=== PATIENT | female | born 1990 | race Caucasian/White ===

== ENCOUNTER 2018-06-12 22:03 | Emergency (ER) | payer SELFPAY ==
[2018-06-13] MEDS ORDERED: Cyclobenzaprine TAB* 10 MG PO ONE (01:46)
[2018-06-13] MEDS ORDERED: Ketorolac INJ* 60 MG/2 ML VIAL IM ONE (01:46)
[2018-06-13] MEDS ORDERED: oxyCODONE/Acetamin 5/325 MG* TAB PO ONE (01:46)
--- NOTE | 2018-06-13 02:08 | ED ---
Back Pain - HPI Summary HPI Summary: This patient is a 27 year old F presenting to [facility] c/o lower back pain that she describes as a spams. She states she was at work yesterday, bending over a counter, when her back began to spam. Since then she has been lying in bed taking alleve without relief. The patient rates the pain 8/10 in severity and states it radiates into her left groin and leg. Symptoms aggravated by movement. Patient denies urinary sx, trouble passing stool, fever, trauma, and decreased appetite. - History of Current Complaint Chief Complaint: EDBackInjuryPain Stated Complaint: BACK PAIN Time Seen by Provider: 06/13/18 01:40 Hx Obtained From: Patient Onset/Duration: Lasting Days, Still Present Onset/Duration: Still Present Timing: Constant Back Pain Location: Is Diffuse Severity Initially: Severe Severity Currently: Severe Pain Intensity: 10 Pain Scale Used: 0-10 Numeric Character: Spasmodic Aggravating Symptom(s): Movement Associated Signs And Symptoms: Negative: Fever, Bladder Incontinence, Bowel Incontinence - Allergies/Home Medications Allergies/Adverse Reactions: Allergies Allergy/AdvReac Type Severity Reaction Status Date / Time amoxicillin AdvReac Unknown Verified 06/12/18 22:07 Reaction Details Penicillins AdvReac Unknown Verified 06/12/18 22:07 Reaction Details PMH/Surg Hx/FS Hx/Imm Hx Endocrine/Hematology History: Denies: Hx Thyroid Disease, Hx Unexplained Bleeding Cardiovascular History: Denies: Hx Auto Implanted Cardiovert Defib, Hx Cardiomegaly Respiratory History: Denies: Hx Bronchopulmonary Dysplasia, Hx Cystic Fibrosis Musculoskeletal History: Denies: Hx Scoliosis Infectious Disease History: No Infectious Disease History: Denies: Traveled Outside the [place] in Last 30 Days - Family History Known Family History: Negative: Respiratory Disease, Seizure Disorder - Social History Occupation: Employed Full-time, Employed Part-time Lives: With Family Alcohol Use: None Hx Substance Use: No Substance Use Type: Reports: None Hx Tobacco Use: No Smoking Status (MU): Never Smoked Tobacco Review of Systems Constitutional: Negative - trauma, and decreased appetite. Negative: Fever Gastrointestinal: Negative - trouble passing stool Positive: no symptoms reported Positive: Other - back pain All Other Systems Reviewed And Are Negative: Yes Physical Exam - Summary Physical Exam Summary: VITAL SIGNS: Reviewed. GENERAL: Patient is a well-developed and nourished female who is lying comfortable in the stretcher. Patient is not in any acute respiratory distress. HEAD AND FACE: No signs of trauma. No ecchymosis, hematomas or skull depressions. No sinus tenderness. EYES: PERRLA, EOMI x 2, No injected conjunctiva, no nystagmus. EARS: Hearing grossly intact. Ear canals and tympanic membranes are within normal limits. MOUTH: Oropharynx within normal limits. NECK: Supple, trachea is midline, no adenopathy, no JVD, no carotid bruit, no c- spine tenderness, neck with full ROM. CHEST: Symmetric, no tenderness at palpation LUNGS: Clear to auscultation bilaterally. No wheezing or crackles. CVS: Regular rate and rhythm, S1 and S2 present, no murmurs or gallops appreciated. ABDOMEN: Soft, non-tender. No signs of distention. No rebound no guarding, and no masses palpated. Bowel sounds are normal. Back: TTP in the upper lumbar spine. Bilateral straight leg is positive. Right 30 degrees and 20 degrees on the left EXTREMITIES: FROM in all major joints, no edema, no cyanosis or clubbing. NEURO: Alert and oriented x 3. No acute neurological deficits. Speech is normal and follows commands. SKIN: Dry and warm Triage Information Reviewed: Yes Vital Signs On Initial Exam: Initial Vitals Temp Pulse Resp BP Pulse Ox 99.1 F 104 18 134/88 100 06/12/18 22:05 06/12/18 22:05 06/12/18 22:05 06/12/18 22:05 06/12/18 22:05 Vital Signs Reviewed: Yes Diagnostics - Vital Signs Vital Signs Temp Pulse Resp BP Pulse Ox 06/13/18 02:00 16 06/13/18 00:17 99.4 F 76 16 119/81 06/12/18 22:05 99.1 F 104 18 134/88 100 - Laboratory Lab Statement: Any lab studies that have been ordered have been reviewed, and results considered in the medical decision making process. Re-Evaluation - Re-Evaluation First Eval Re-Evaluation Time: 02:42 Change: Improved Comment: The patient is ambualting in the ED. Back Pain Course/Dx - Course Assessment/Plan: This patient is a 27 year old F presenting to [facility] c/o lower back pain that she describes as a spams. She states she was at work yesterday, bending over a counter, when her back began to spam. Since then she has been lying in bed taking alleve without relief. The patient rates the pain 8/10 in severity and states it radiates into her left groin and leg. Symptoms aggravated by movement. Patient denies urinary sx, trouble passing stool, fever , trauma, and decreased appetite. Dx back pain. In the ED course the patient was given flexeril, toradol, and percocet which alleviated sx. Patient will be discharged with prescription for flexeril and follow up from PCP. The patient is agreeable with this plan. - Diagnoses Provider Diagnoses: Lower back pain Discharge - Sign-Out/Discharge Documenting (check all that apply): Patient Departure - Discharge Plan Condition: Stable Disposition: HOME Patient Education Materials: Back Pain (ED) Referrals: [facility] [place] PHYSICIAN REFERRAL [Outside] Additional Instructions: RETURN TO THE EMERGENCY DEPARTMENT FOR CHANGING OR WORSENING SYMPTOMS. FOLLOW UP WITH PCP IN 1-2 DAYS. - Attestation Statements Document Initiated by Scribe: Yes Documenting Scribe: Jignesh Templeton Provider For Whom Taty is Documenting (Include Credential): Georgia Nagel MD Scribe Attestation: Jignesh Steiner, scribed for Georgia Nagel MD on 06/13/18 at 0241.
[2018-06-13 02:51] VITALS: BP 120/70
== END 2018-06-13 02:50 | disposition home or self-care (01) ==
LOC: ED 22:03
DX: M54.5 Low back pain (principal); Z88.0 Allergy status to penicillin
CPT/HCPCS: 96372; 99282; A9270-GY; J1885

== ENCOUNTER 2018-12-02 19:45 | Emergency (ER) | payer MEDICAID, OTHER ==
[2018-12-02 20:25] LABS: ABS Basophils 0.1 10^3/ul (0-0.2); ABS Eosinophils 0.2 10^3/ul (0-0.6); ABS Monocytes 0.6 10^3/ul (0-0.8); ABS Neutrophils 7.2 10^3/ul (1.5-7.7); ABS Nucleated RBC 0 10^3/ul; Eosinophil % 1.8 %; Hematocrit 41 % (33-41); Hemoglobin 13.9 g/dL (12.0-16.0); Lymphocyte % 27.5 %; Mean Corpuscular HGB Conc 34 g/dL (31-36); Mean Corpuscular Hemoglobin 30 pg (27-31); Mean Corpuscular Volume 87 fL (80-97); Mean Platelet Volume 7.6 fL (7.4-10.4); Nucleated Red Blood Cells % 0.1; Platelet Count 379 10^3/uL (150-450); Red Blood Count 4.69 10^6 /uL (3.70-4.87); Red Cell Distribution Width 12 % (10.5-15); White Blood Count 11.1 10^3/uL (3.5-10.8)
[2018-12-02 20:36] LABS: ALT 50 U/L (7-52); AST 25 U/L (13-39); Albumin/Globulin Ratio 1.8 (1-3); Alkaline Phosphatase 70 U/L (34-104); Anion Gap 6 mmol/L (2-11); BUN/Creatinine Ratio 15.8 (8-20); Blood Urea Nitrogen 12 mg/dL (6-24); CO2 Carbon Dioxide 28 mmol/L (22-32); Calcium 9.5 mg/dL (8.6-10.3); Chloride 104 mmol/L (101-111); EGFR African American 111.3 (>60); Globulin 2.8 g/dL (2-4); Glucose 108 mg/dL (70-100); Potassium 3.7 mmol/L (3.5-5.0); Sodium 138 mmol/L (135-145); Total Protein 7.8 g/dL (6.4-8.9)
[2018-12-02 20:43] LABS: HCG Pregnancy < 0.60 mIU/mL
--- NOTE | 2018-12-02 21:50 | ED ---
GI/ HPI - HPI Summary HPI Summary: Patient with history of pre-op transgender female, taking hormones for male going to female, complains of increasing closing of the urethral opening on the penis 2 weeks, and possible purulent discharge, and mild abdominal pain. Patient also states this morning she was unable to urinate and used a set of tweezers to open the urethra which resulted in urine flow and subsequent persistent bleeding. Patient states she inserted tweezers what appears to be about .75cm. Patient states no burning with urination, fever, testicular pain, cough, sore throat, CP, SOB, N/V/D, change in BM. Medical history is none. Abdominal surgical history is none. - History of Current Complaint Chief Complaint: EDUrogenitalProblems Time Seen by Provider: 12/02/18 21:05 Stated Complaint: BLEEDING FROM URINARY TRACT PER PT Hx Obtained From: Patient Onset/Duration: Started Hours Ago Timing: Constant Severity: Mild Current Severity: Mild Pain Intensity: 7 Additional Location for Females: Other Associated Signs and Symptoms: Positive: Discharge, Hematuria, Abdominal Pain Aggravating Factor(s): Urination - Allergy/Home Medications Allergies/Adverse Reactions: Allergies Allergy/AdvReac Type Severity Reaction Status Date / Time amoxicillin AdvReac Unknown Verified 12/02/18 19:55 Reaction Details Penicillins AdvReac Unknown Verified 12/02/18 19:55 Reaction Details Home Medications: Home Medications Estradiol 3 mg PO DAILY 12/02/18 [History Confirmed 12/02/18] Spironolactone 200 mg PO DAILY 12/02/18 [History Confirmed 12/02/18] PMH/Surg Hx/FS Hx/Imm Hx Endocrine/Hematology History: Denies: Hx Thyroid Disease, Hx Unexplained Bleeding Cardiovascular History: Denies: Hx Auto Implanted Cardiovert Defib, Hx Cardiomegaly Respiratory History: Denies: Hx Bronchopulmonary Dysplasia, Hx Cystic Fibrosis History: Denies: Hx Dialysis Musculoskeletal History: Denies: Hx Scoliosis Sensory History: Denies: Hx Eye Prosthesis Opthamlomology History: Denies: Hx Legally Blind EENT History: Denies: Hx Deafness Neurological History: Denies: Hx Dementia Psychiatric History: Denies: Hx Autism Infectious Disease History: Yes Infectious Disease History: Denies: Traveled Outside the [place] in Last 30 Days - Family History Known Family History: Negative: Respiratory Disease, Seizure Disorder - Social History Alcohol Use: Occasionally Hx Substance Use: No Substance Use Type: Reports: None Hx Tobacco Use: No Smoking Status (MU): Never Smoked Tobacco Review of Systems Constitutional: Negative Eyes: Negative ENT: Negative Cardiovascular: Negative Respiratory: Negative Positive: Abdominal Pain Positive: dysuria, discharge, hematuria Musculoskeletal: Other Skin: Negative Neurological: Negative Psychological: Normal All Other Systems Reviewed And Are Negative: Yes Physical Exam - Summary Physical Exam Summary: Foreskin retractable. No evidence of edema, trauma, erythema, ecchymosis noted to penis or testicles. No pain with palpation. Extremely small urethral opening. Abdomen soft nontender. No active bleeding. Triage Information Reviewed: Yes Vital Signs On Initial Exam: Initial Vitals Temp Pulse Resp BP Pulse Ox 96.5 F 96 16 127/90 100 12/02/18 19:52 12/02/18 19:52 12/02/18 19:52 12/02/18 19:52 12/02/18 19:52 Vital Signs Reviewed: Yes Appearance: Positive: Well-Appearing Skin: Positive: Warm Head/Face: Positive: Normal Head/Face Inspection Eyes: Positive: Normal Neck: Positive: Supple Respiratory/Lung Sounds: Positive: Clear to Auscultation Cardiovascular: Positive: Normal Abdomen Description: Positive: Nontender Neurological: Positive: Normal Psychiatric: Positive: Normal AVPU Assessment: Alert - [place] Coma Scale Best Eye Response: 4 - Spontaneous Best Motor Response: 6 - Obeys Commands Best Verbal Response: 5 - Oriented Coma Scale Total: 15 Diagnostics - Vital Signs Vital Signs Temp Pulse Resp BP Pulse Ox 12/02/18 19:52 96.5 F 96 16 127/90 100 - Laboratory Lab Results: Lab Results 12/02/18 12/02/18 Range/Units 20:12 20:12 WBC 11.1 H (3.5-10.8) 10^3/uL RBC 4.69 (3.70-4.87) 10^6 /uL Hgb 13.9 (12.0-16.0) g/dL Hct 41 (33-41) % MCV 87 (80-97) fL MCH 30 (27-31) pg MCHC 34 (31-36) g/dL RDW 12 (10.5-15) % Plt Count 379 (150-450) 10^3/uL MPV 7.6 (7.4-10.4) fL Neut % (Auto) 65.1 % Lymph % (Auto) 27.5 % [place] % (Auto) 5.1 % Eos % (Auto) 1.8 % Baso % (Auto) 0.5 % Absolute Neuts (auto) 7.2 (1.5-7.7) 10^3/ul Absolute Lymphs (auto) 3.0 (1.0-4.8) 10^3/ul Absolute Monos (auto) 0.6 (0-0.8) 10^3/ul Absolute Eos (auto) 0.2 (0-0.6) 10^3/ul Absolute Basos (auto) 0.1 (0-0.2) 10^3/ul Absolute Nucleated RBC 0 10^3/ul Nucleated RBC % 0.1 Sodium 138 (135-145) mmol/L Potassium 3.7 (3.5-5.0) mmol/L Chloride 104 (101-111) mmol/L Carbon Dioxide 28 (22-32) mmol/L Anion Gap 6 (2-11) mmol/L BUN 12 (6-24) mg/dL Creatinine 0.76 (0.51-0.95) mg/dL Est GFR ( Amer) 111.3 (>60) Est GFR (Non-Af Amer) 92.0 (>60) BUN/Creatinine Ratio 15.8 (8-20) Glucose 108 H (70-100) mg/dL Calcium 9.5 (8.6-10.3) mg/dL Total Bilirubin 0.50 (0.2-1.0) mg/dL AST 25 (13-39) U/L ALT 50 (7-52) U/L Alkaline Phosphatase 70 (34-104) U/L Total Protein 7.8 (6.4-8.9) g/dL Albumin 5.0 (3.2-5.2) g/dL Globulin 2.8 (2-4) g/dL Albumin/Globulin Ratio 1.8 (1-3) Beta HCG, Quant < 0.60 mIU/mL Result Diagrams: 12/02/18 20:12 12/02/18 20:12 Lab Statement: Any lab studies that have been ordered have been reviewed, and results considered in the medical decision making process. GIGU Course/Dx - Course Course Of Treatment: Patient with history of pre-op transgender female, taking hormones for male going to female, complains of increasing closing of the urethral opening on the penis 2 weeks, and possible purulent discharge, and mild abdominal pain. Patient also states this morning she was unable to urinate and used a set of tweezers to open the urethra which resulted in urine flow and subsequent persistent bleeding. Patient states she inserted tweezers what appears to be about .75cm. Patient states no burning with urination, fever , testicular pain, cough, sore throat, CP, SOB, N/V/D, change in BM. Medical history is none. Abdominal surgical history is none. Physical exam:Foreskin retractable. No evidence of edema, trauma, erythema, ecchymosis noted to penis or testicles. No pain with palpation. Extremely small urethral opening. Abdomen soft nontender. No active bleeding. Vital signs within normal limits. Patient was able to provide urine sample. Bladder scan showed complete voiding her bladder. However patient states she was unable to urinate at all this morning, and had used tweezers to create an opening. Consequently catheter will be placed so patient can urinate and when patient will follow-up with urology on Tuesday. Patient understands and approves of plan. - Diagnoses Provider Diagnoses: Urethral stricture Discharge - Sign-Out/Discharge Documenting (check all that apply): Patient Departure Patient Received Moderate/Deep Sedation with Procedure: No - Discharge Plan Condition: Stable Disposition: HOME Patient Education Materials: Urinary Retention in Men (ED) Referrals: No Primary Care Phys,NOPCP [Primary Care Provider] - Edilson Sanchez MD [Medical Doctor] - Additional Instructions: Leave catheter in place. Follow-up with urology on Tuesday for post ED follow-up and further evaluation of urethral stricture. Return to the ED for any new or worsening symptoms. - Billing Disposition and Condition Condition: STABLE Disposition: Home
[2018-12-02 21:56] LABS: Urine Appearance Cloudy; Urine Bacteria Absent (Absent); Urine Bilirubin Negative (Negative); Urine Blood 2+ (Negative); Urine Color Yellow; Urine Glucose Negative (Negative); Urine Ketones Trace (Negative); Urine Nitrite Negative (Negative); Urine Protein Negative (Negative); Urine Red Blood Cell 3+(>10/hpf) (Absent); Urine Specific Gravity 1.023 (1.010-1.030); Urine Squamous Epithelial Cell Present (Absent); Urine Urobilinogen Negative (Negative); Urine White Blood Cell 1+(6-10/hpf) (Absent)
[2018-12-02] MEDS ORDERED: Lidocaine 2% JELLY* 10 ML JELLY TOPICAL ONE (22:09)
[2018-12-02 23:30] VITALS: BP 126/79
[2018-12-02] MEDS ORDERED: Lidocaine 2% JELLY* 6 ML JELLY TOPICAL ONE (23:31)
== END 2018-12-02 23:35 | disposition home or self-care (01) ==
LOC: ED 19:45
DX: N35.919 Unspecified urethral stricture, male, unspecified site (principal); R36.9 Urethral discharge, unspecified; R31.9 Hematuria, unspecified; Z88.0 Allergy status to penicillin
CPT/HCPCS: 36415; 51702; 80053; 81003; 81015; 84702; 85025; 87077; 87086; 87186; 99283; A9270-GY

== ENCOUNTER 2018-12-03 20:39 | Emergency (ER) | payer OTHER ==
--- NOTE | 2018-12-03 22:24 | ED ---
GI/ HPI - HPI Summary HPI Summary: This patient is a 28 year old F presenting to [facility] with a chief complaint of pain at the penile meatus that began yesterday. Patient states she is transgender and transitioning from male to female. The patient rates the pain 9/ 10 in severity. Symptoms aggravated by nothing. Symptoms alleviated by nothing. Patient reports thick white penile discharge. Patient states she had the Waller catheter placed yesterday. - History of Current Complaint Chief Complaint: EDUrogenitalProblems Time Seen by Provider: 12/03/18 22:12 Stated Complaint: INFECTION IN CATHETER PER PT Hx Obtained From: Patient Onset/Duration: Started Days Ago, Atraumatic, Still Present Timing: Constant Severity: Severe Current Severity: Severe Pain Intensity: 9 Associated Signs and Symptoms: Positive: Other: - Positive penile discharge Aggravating Factor(s): Nothing Alleviating Factor(s): Nothing - Allergy/Home Medications Allergies/Adverse Reactions: Allergies Allergy/AdvReac Type Severity Reaction Status Date / Time amoxicillin AdvReac Unknown Verified 12/03/18 21:01 Reaction Details Penicillins AdvReac Unknown Verified 12/03/18 21:01 Reaction Details PMH/Surg Hx/FS Hx/Imm Hx Previously Healthy: Yes Endocrine/Hematology History: Denies: Hx Thyroid Disease, Hx Unexplained Bleeding Cardiovascular History: Denies: Hx Auto Implanted Cardiovert Defib, Hx Cardiomegaly Respiratory History: Denies: Hx Bronchopulmonary Dysplasia, Hx Cystic Fibrosis History: Denies: Hx Dialysis Musculoskeletal History: Denies: Hx Scoliosis Sensory History: Denies: Hx Eye Prosthesis, Hx Legally Blind, Hx Deafness Opthamlomology History: Denies: Hx Eye Prosthesis, Hx Legally Blind Neurological History: Denies: Hx Dementia Psychiatric History: Denies: Hx Autism Infectious Disease History: No Infectious Disease History: Denies: Traveled Outside the [place] in Last 30 Days - Family History Known Family History: Negative: Respiratory Disease, Seizure Disorder - Social History Occupation: Employed Full-time Lives: With Family Alcohol Use: Occasionally Hx Substance Use: No Substance Use Type: Reports: None Hx Tobacco Use: No Smoking Status (MU): Never Smoked Tobacco Review of Systems Negative: Fever Genitourinary: Other - Positive penile discharge and penile meatus pain All Other Systems Reviewed And Are Negative: Yes Physical Exam - Summary Physical Exam Summary: VITAL SIGNS: Reviewed. GENERAL: Patient is a well-developed and nourished male (transgender male transitioning to female) who is lying comfortable in the stretcher. Patient is not in any acute respiratory distress. HEAD AND FACE: No signs of trauma. No ecchymosis, hematomas or skull depressions. No sinus tenderness. EYES: PERRLA, EOMI x 2, No injected conjunctiva, no nystagmus. EARS: Hearing grossly intact. Ear canals and tympanic membranes are within normal limits. MOUTH: Oropharynx within normal limits. NECK: Supple, trachea is midline, no adenopathy, no JVD, no carotid bruit, no c- spine tenderness, neck with full ROM. CHEST: Symmetric, no tenderness at palpation LUNGS: Clear to auscultation bilaterally. No wheezing or crackles. CVS: Regular rate and rhythm, S1 and S2 present, no murmurs or gallops appreciated. ABDOMEN: Soft, non-tender. No signs of distention. No rebound no guarding, and no masses palpated. Bowel sounds are normal. GENITAL EXAM: Waller catheter with tenderness over the penile meatus. No visible discharge. EXTREMITIES: FROM in all major joints, no edema, no cyanosis or clubbing. NEURO: Alert and oriented x 3. No acute neurological deficits. Speech is normal and follows commands. SKIN: Dry and warm Triage Information Reviewed: Yes Vital Signs On Initial Exam: Initial Vitals Temp Pulse Resp BP Pulse Ox 99.0 F 87 16 108/84 98 12/03/18 20:55 12/03/18 20:55 12/03/18 20:55 12/03/18 20:55 12/03/18 20:55 Vital Signs Reviewed: Yes Diagnostics - Vital Signs Vital Signs Temp Pulse Resp BP Pulse Ox 12/03/18 20:55 99.0 F 87 16 108/84 98 - Laboratory Lab Statement: Any lab studies that have been ordered have been reviewed, and results considered in the medical decision making process. GIGU Course/Dx - Course Course Of Treatment: This patient is a 28 year old F presenting to [facility] with a chief complaint of pain at the penile meatus that began yesterday. Patient states she is transgender and transitioning from male to female. Physical Exam Findings: Waller catheter with tenderness over the penile meatus. No visible discharge. In the ED course the patient was given lidocaine and ciprofloxacin. Patient will be discharged with prescription for Cipro and follow up from PCP. The patient is agreeable with this plan. - Diagnoses Provider Diagnoses: Urethritis Discharge - Sign-Out/Discharge Documenting (check all that apply): Patient Departure - Discharge home Patient Received Moderate/Deep Sedation with Procedure: No - Discharge Plan Condition: Stable Disposition: HOME Prescriptions: Ciprofloxacin TAB* [Cipro 500 MG TAB*] 500 mg PO BID #14 tab Patient Education Materials: Ciprofloxacin (By mouth) Referrals: [facility] [place] PHYSICIAN REFERRAL [Outside] - 2 Days Additional Instructions: FOLLOW UP WITH UROLOGY PLANNED RETURN TO THE EMERGENCY DEPARTMENT FOR NEW OR WORSENING SYMPTOMS - Attestation Statements Document Initiated by Scribe: Yes Documenting Scribe: Deysi Brennan Provider For Whom Scribe is Documenting (Include Credential): Dr. Georgia Nagel MD Scribe Attestation: IDeysi, scribed for Dr. Georgia Nagel MD on 12/03/18 at [id number]. Status of Scribe Document: Ready
[2018-12-03] MEDS ORDERED: Lidocaine 4% GEL* 10 GM TUBE TOPICAL PRN (22:48)
[2018-12-03] MEDS ORDERED: Ciprofloxacin TAB* 500 MG PO ONE (22:49)
[2018-12-03] MEDS ORDERED: Lidocaine 2% JELLY* 6 ML JELLY TOPICAL ONE (23:00)
[2018-12-03 23:15] VITALS: BP 112/76
--- NOTE | 2018-12-07 08:12 | PN ---
Progress Note - Progress Note Date of Service: 12/02/18 Note: Pt. started on Cipro for potential UTI. Preliminary culture is growing strep mitis/strep oralis 75-100k. Pending final urine culture.
--- NOTE | 2018-12-08 05:53 | PN ---
Progress Note - Progress Note Date of Service: 12/02/18 Note: Patient's urine culture final grew strep mitis and oralis This is pansensitive Patient was placed on ciprofloxacin prior to discharge This is appropriate treatment Nothing further is needed at this time
== END 2018-12-03 23:14 | disposition home or self-care (01) ==
LOC: ED 20:39
DX: N34.2 Other urethritis (principal); B95.4 Other streptococcus as the cause of diseases classified elsewhere; Z88.0 Allergy status to penicillin
CPT/HCPCS: 99282; A9270-GY

== ENCOUNTER → 2019-03-07 03:03 | Emergency (ER) | payer OTHER ==
--- NOTE | 2019-03-07 03:37 | ED ---
Headache - HPI Summary HPI Summary: 28 year old F presenting to [facility] accompanied by male friend with a chief complaint of sudden onset headache since waking up at 02:00 today. The patient rates the pain 9/10 in severity. Symptoms aggravated by nothing. Symptoms alleviated by nothing. Patient reports fever, congestion, sore throat, and shortness of breath. Patient is former smoker who quit 3 years ago. - History Of Current Complaint Chief Complaint: EDHeadache Stated Complaint: FEVER/SOB PER PT Time Seen by Provider: 03/07/19 03:21 Hx Obtained From: Patient Onset/Duration: Sudden Onset, Started hours ago - 1, Still Present Timing: Constant Aggravating Factor: Nothing Allevating Factors: Nothing Associated Signs And Symptoms: Other (Noted In Comments) - fever, congestion, sore throat, and shortness of breath - Allergies/Home Medications Allergies/Adverse Reactions: Allergies Allergy/AdvReac Type Severity Reaction Status Date / Time amoxicillin AdvReac Unknown Verified 12/03/18 21:01 Reaction Details Penicillins AdvReac Unknown Verified 12/03/18 21:01 Reaction Details PMH/Surg Hx/FS Hx/Imm Hx Previously Healthy: No Endocrine/Hematology History: Denies: Hx Thyroid Disease, Hx Unexplained Bleeding Cardiovascular History: Denies: Hx Auto Implanted Cardiovert Defib, Hx Cardiomegaly, Hx Hypertension Respiratory History: Denies: Hx Bronchopulmonary Dysplasia, Hx Cystic Fibrosis History: Denies: Hx Dialysis Musculoskeletal History: Denies: Hx Scoliosis Sensory History: Reports: Hx Contacts or Glasses Denies: Hx Eye Prosthesis, Hx Legally Blind, Hx Deafness Opthamlomology History: Reports: Hx Contacts or Glasses Denies: Hx Eye Prosthesis, Hx Legally Blind Neurological History: Denies: Hx Dementia Psychiatric History: Denies: Hx Autism - Surgical History Surgery Procedure, Year, and Place: none Infectious Disease History: Yes Infectious Disease History: Denies: Traveled Outside the [place] in Last 30 Days - Family History Known Family History: Negative: Respiratory Disease, Seizure Disorder - Social History Alcohol Use: Occasionally Hx Substance Use: No Substance Use Type: Reports: None Hx Tobacco Use: Yes Smoking Status (MU): Former Smoker - quit in 2015 Review of Systems Positive: Fever Positive: Sore Throat, Other - congestion Positive: Shortness Of Breath Positive: Headache All Other Systems Reviewed And Are Negative: Yes Physical Exam - Summary Physical Exam Summary: VITAL SIGNS: Reviewed. GENERAL: Patient is a well-developed and nourished FEMALE who is lying comfortable in the stretcher. Patient is not in any acute respiratory distress. HEAD AND FACE: No signs of trauma. No ecchymosis, hematomas or skull depressions. No sinus tenderness. mild congestion EYES: PERRLA, EOMI x 2, No injected conjunctiva, no nystagmus. EARS: Hearing grossly intact. Ear canals and tympanic membranes are within normal limits. MOUTH: Pharyngeal erythema with no exudates NECK: Supple, trachea is midline, no adenopathy, no JVD, no carotid bruit, no c- spine tenderness, neck with full ROM CHEST: Symmetric, no tenderness at palpation LUNGS: Clear to auscultation bilaterally. No wheezing or crackles. CVS: Regular rate and rhythm, S1 and S2 present, no murmurs or gallops appreciated. ABDOMEN: Soft, non-tender. No signs of distention. No rebound no guarding, and no masses palpated. Bowel sounds are normal. EXTREMITIES: FROM in all major joints, no edema, no cyanosis or clubbing. NEURO: Alert and oriented x 3. No acute neurological deficits. Speech is normal and follows commands. SKIN: Dry and warm Triage Information Reviewed: Yes Vital Signs On Initial Exam: Initial Vitals Temp Pulse Resp BP Pulse Ox 99.7 F 120 18 116/86 96 03/07/19 03:10 03/07/19 03:10 03/07/19 03:10 03/07/19 03:10 03/07/19 03:10 Vital Signs Reviewed: Yes Diagnostics - Vital Signs Vital Signs Temp Pulse Resp BP Pulse Ox 03/07/19 03:10 99.7 F 120 18 116/86 96 - Laboratory Result Diagrams: 03/07/19 04:30 03/07/19 04:30 Lab Statement: Any lab studies that have been ordered have been reviewed, and results considered in the medical decision making process. - Radiology CXR Radiology Interpretation Completed By: ED Physician Summary of Radiographic Findings: No acute processes. Pending official report. Headache Course/Dx - Course Course Of Treatment: 28 year old F presenting to [facility] accompanied by male friend with a chief complaint of sudden onset headache, fever, congestion, sore throat, and shortness of breath since waking up at 02:00 today. Physical exam findings: mild congestion, pharyngeal erythema with no exudates. . CXR reveals no acute processes. Test results with no significant abnormalities except for WBC 11.4, MPV 7.0, absolute neuts 8.1, absolute monos 1.1, glucose 108. Influenza A and B, strep tests are negative. In the ED course, the patient was given IV fluids, Toradol, Reglan, and Tylenol. Patient feels better and would like to go home. Patient will be discharged home with prescription for Motrin and Reglan and follow up from primary care provider in 3 days. Patient was instructed to return to ED for new or worsening symptoms. Patient understands and is agreeable to discharge plan. - Diagnoses Provider Diagnoses: Pharyngitis, Viral syndrome Discharge - Sign-Out/Discharge Documenting (check all that apply): Patient Departure - Discharge Patient Received Moderate/Deep Sedation with Procedure: No - Discharge Plan Condition: Stable Disposition: HOME Prescriptions: Ibuprofen TAB* [Motrin TAB* 800 MG] 800 mg PO Q6H PRN #30 tab PRN Reason: Pain Or Fever Metoclopramide TAB* [Reglan TAB*] 10 mg PO Q6H PRN #14 tab PRN Reason: Nausea/Vomiting Patient Education Materials: Pharyngitis (ED) Referrals: [facility] [place] [facility]ERR[facility] [Outside] - 3 Days Additional Instructions: Follow up with your primary care provider in 3 days. PLEASE RETURN TO THE EMERGENCY DEPARTMENT IMMEDIATELY FOR WORSENING OR CONCERNING SYMPTOMS. - Attestation Statements Document Initiated by Niravibe: Yes Documenting Scribe: Karen Guerra Provider For Whom Niravibe is Documenting (Include Credential): Georgia Nagel MD Scribe Attestation: IKaren, scribed for Georgia Nagel MD on 03/07/19 at 0516. Status of Scribe Document: Ready
[2019-03-07 03:59] LABS: Rapid Strep Molecular Negative (Negative)
[2019-03-07] MEDS: Ketorolac INJ* 30 MG/ML 1 ML VIAL IV PUSH ONE (03:59)
[2019-03-07] MEDS: Metoclopramide IV* 5 MG/ML 2 ML VIAL IV SLOW PU ONE (04:00)
[2019-03-07] MEDS: NS 0.9% 1000 ML** 1,000 ML IV ONE (04:01)
[2019-03-07] MEDS: Acetaminophen TAB* 325 MG PO ONE (04:03)
[2019-03-07 04:37] LABS: ABS Basophils 0.1 10^3/ul (0-0.2); ABS Eosinophils 0.3 10^3/ul (0-0.6); ABS Lymphocytes 1.9 10^3/ul (1.0-4.8); ABS Monocytes 1.1 10^3/ul (0-0.8); ABS Neutrophils 8.1 10^3/ul (1.5-7.7); Eosinophil % 2.7 %; Hematocrit 40 % (35-47); Hemoglobin 13.8 g/dL (12.0-16.0); Lymphocyte % 16.6 %; Mean Corpuscular HGB Conc 35 g/dL (31-36); Mean Corpuscular Hemoglobin 30 pg (27-31); Mean Corpuscular Volume 85 fL (80-97); Platelet Count 326 10^3/uL (150-450); Red Blood Count 4.64 10^6 /uL (3.70-4.87); Red Cell Distribution Width 12 % (10-15); White Blood Count 11.4 10^3/uL (3.5-10.8)
[2019-03-07 04:54] LABS: Albumin 4.4 g/dL (3.2-5.2); Albumin/Globulin Ratio 1.6 (1-3); BUN/Creatinine Ratio 14.3 (8-20); C Reactive Protein 6.66 mg/L (<8.01); Calcium 8.9 mg/dL (8.6-10.3); EGFR African American 109.6 (>60); EGFR Non-African American 90.6 (>60); Globulin 2.7 g/dL (2-4); Total Bilirubin 0.4 mg/dL (0.2-1.0); Total Protein 7.1 g/dL (6.4-8.9)
[2019-03-07 05:10] LABS: Influenza A Molecular NEGATIVE (Negative); Influenza B Molecular NEGATIVE (Negative)
[2019-03-07 06:06] VITALS: BP 130/61
== END | disposition home or self-care (01) ==
LOC: MERGE 03:03 → UNMERGE 03:03 → ED 03:03
DX: J02.9 Acute pharyngitis, unspecified (principal); B34.9 Viral infection, unspecified; Z87.891 Personal history of nicotine dependence
CPT/HCPCS: 36415; 71045; 80053; 83605; 85025; 86140; 87040; 87651; 96361; 96374; 96375; 99284; A9270-GY; J1885; J2765

== ENCOUNTER 2019-06-22 20:20 | Emergency (ER) | payer OTHER ==
[2019-06-22 20:28] VITALS: BP 150/93
--- NOTE | 2019-06-22 20:37 | UC ---
Lower Extremity/Ankle HPI - HPI Summary HPI Summary: 28 yo male to female transgendered individual presents with left leg complaints. She tells me that about 2 months ago she was lifting heavy crates at work and felt a sharp tear/pull in her left buttocks. Had immediate pain that persisted. Pain slightly improved, but about a month later developed feelings that her entire left leg had decreased sensations and that she is "dragging" it. Over the last 2 weeks she states she has had left calf cramping and further decreased sensation from the left knee down. She is a former smoker. She is also on HRT for her transition. No recent travel. She denies back pain, saddle anesthesia, dysuria, abdominal pain, loss of bowel/bladder control. - History of Current Complaint Chief Complaint: UCLowerExtremity Stated Complaint: LEG PAIN Time Seen by Provider: 06/22/19 20:33 Hx Obtained From: Patient Hx Last Menstrual Period: N/A Onset/Duration: Gradual Onset Severity Initially: Moderate Severity Currently: Moderate Pain Intensity: 7 Pain Scale Used: 0-10 Numeric - Allergies/Home Medications Allergies/Adverse Reactions: Allergies Allergy/AdvReac Type Severity Reaction Status Date / Time shellfish derived Allergy Unknown Verified 06/22/19 20:28 Reaction Details amoxicillin AdvReac Unknown Verified 06/22/19 20:28 Reaction Details Penicillins AdvReac Unknown Verified 06/22/19 20:28 Reaction Details PMH/Surg Hx/FS Hx/Imm Hx - Additional Past Medical History Additional PMH: HRT for male to female transition - Surgical History Surgical History: None - Family History Known Family History: Positive: Non-Contributory - Social History Occupation: Employed Full-time Lives: With Family Alcohol Use: Rare Substance Use Type: None Smoking Status (MU): Former Smoker Review of Systems All Other Systems Reviewed And Are Negative: No Constitutional: Positive: Negative Skin: Positive: Negative Respiratory: Positive: Negative Cardiovascular: Positive: Negative Gastrointestinal: Positive: Negative Genitourinary: Positive: Negative Motor: Positive: Negative Neurovascular: Positive: Negative Musculoskeletal: Positive: Other: - Left leg pain Neurological: Positive: Negative Psychological: Positive: Negative Physical Exam - Summary Physical Exam Summary: GENERAL: NAD. WDWN. No pain distress. SKIN: No rashes, sores, lesions, or open wounds. NECK: Supple. FROM. Nontender. No lymphadenopathy. CHEST: CTAB. No r/r/w. No accessory muscle use. Breathing comfortably and in no distress. CV: RRR. Pulses intact. Cap refill <2seconds MSK: LEFT SI TTP. No lumbar paraspinal or vertebral tenderness. Positive SLR on LEFT for low back pain without radiation. Strength 5/5 B/L LEs including dorsiflexion and plantar flexion. FROM B/L LEs. No edema. LEFT CALF: Mild TTP about posterior lower leg. Negative Guillermina sign. No palpable cord. NEURO: Alert. Sensations intact B/L LEs L3-S1, but pt states sensations are decreased L3-S1 on left compared to right. Reflexes intact and symmetric. PSYCH: Age appropriate behavior. Triage Information Reviewed: Yes Vital Signs: Initial Vital Signs Temp 97.3 F 06/22/19 20:24 Pulse 102 06/22/19 20:24 Resp 18 06/22/19 20:24 BP 150/93 06/22/19 20:24 Pulse Ox 100 06/22/19 20:24 Vital Signs Reviewed: Yes Diagnostics - Radiology Lumbar XR Radiology Interpretation Completed By: ED Physician Summary of Radiographic Findings: Negative Lower Extremity Course/Dx - Course Course Of Treatment: XR wet read negative. I suspect her symptoms are most likely related to sciatica type pain, but her decreased sensation does not follow a dermatome and encompasses the entire left extremity. She is concerned about a DVT given her hx of injury, smoking, and HRT - I believe this is high within the differential, but I still favor an MSK etiology or lumbar radiculopathy. I recommended that she go to the ER this evening to r/o DVT. I will refer her to physical therapy and to a PCP for further evaluation of her symptoms if her DVT is negative. - Differential Dx/Diagnosis Provider Diagnosis: Left leg pain, Paresthesia of left leg Discharge ED - Sign-Out/Discharge Documenting (check all that apply): Patient Departure All imaging exams completed and their final reports reviewed: No - Discharge Plan Condition: Stable Disposition: HOME-RECOMMEND TO ED Referrals: No Primary Care Phys,NOPCP [Primary Care Provider] - [facility] [place] [facility] [Outside] - As Soon As Possible Additional Instructions: I recommend that you go to the ER for further evaluation of your leg pain. You are higher than average risk for a DVT. If your DVT is negative - please follow up with physical therapy and a Primary Doctor for further evaluation of your ongoing discomfort. - Billing Disposition and Condition Condition: STABLE Disposition: Home-Recommend to ED
--- NOTE | 2019-06-23 14:05 | UC ---
- Progress Note Progress Note: PROGRESS NOTE: x ray RESULTS: , osteoarthritis, no fracture MDM:.no change in treatment. Zach Van MD Course/Dx - Diagnoses Provider Diagnoses: Left leg pain, Paresthesia of left leg Discharge ED - Sign-Out/Discharge Documenting (check all that apply): Patient Departure - discharge discharge included postdischarge follow-up and this is clear to switch so there is a note , Post-Discharge Follow Up All imaging exams completed and their final reports reviewed: Yes - Discharge Plan Condition: Stable Disposition: HOME-RECOMMEND TO ED Referrals: [facility] [place] [facility]ERR[facility] [Outside] - As Soon As Possible No Primary Care Phys,NOPCP [Primary Care Provider] - Additional Instructions: I recommend that you go to the ER for further evaluation of your leg pain. You are higher than average risk for a DVT. If your DVT is negative - please follow up with physical therapy and a Primary Doctor for further evaluation of your ongoing discomfort. - Billing Disposition and Condition Condition: STABLE Disposition: Home-Recommend to ED
== END 2019-06-22 21:26 | disposition home health service (06) ==
LOC: UCEAST 20:20
DX: M79.605 Pain in left leg (principal); R20.2 Paresthesia of skin; Z88.0 Allergy status to penicillin; Z91.013 Allergy to seafood; Z79.890 Hormone replacement therapy; Z87.891 Personal history of nicotine dependence
CPT/HCPCS: 72110; 99212; G0463

== ENCOUNTER 2019-06-22 21:41 | Emergency (ER) | payer OTHER ==
[2019-06-22 21:50] VITALS: BP 130/95
== END 2019-06-23 00:03 | disposition left against medical advice (07) ==
LOC: ED 21:41
DX: R20.2 Paresthesia of skin (principal); Z53.21 Procedure and treatment not carried out due to patient leaving prior to being seen by health care provider

== ENCOUNTER 2019-08-14 22:40 | Emergency (ER) | payer OTHER ==
--- NOTE | 2019-08-14 23:09 | ED ---
Neck Pain - HPI Summary HPI Summary: 28 year old female presenting with over 1 year of neck pain. Pain has gotten considerably worse in the past month. Localized to right side of neck. Has had pain with swallowing and states "it feels like I am swallowing razor blades." She states that she has also noticed a change in her voice for the past 3 weeks. Admits to fatigue. Denies fever, chills, lymphadenopathy. 12 year history of smoking tobacco. Patient has not followed up with ENT since previous evaluation. - History of Current Complaint Chief Complaint: EDThroatPain Stated Complaint: LUMP ON NECK PER PT Time Seen by Provider: 08/14/19 22:52 Hx Last Menstrual Period: N/A Pain Intensity: 8 - Allergies/Home Medications Allergies/Adverse Reactions: Allergies Allergy/AdvReac Type Severity Reaction Status Date / Time shellfish derived Allergy Unknown Verified 08/14/19 22:46 Reaction Details amoxicillin AdvReac Unknown Verified 08/14/19 22:46 Reaction Details Penicillins AdvReac Unknown Verified 08/14/19 22:46 Reaction Details PMH/Surg Hx/FS Hx/Imm Hx Endocrine/Hematology History: Denies: Hx Anticoagulant Therapy Respiratory History: Reports: Hx Asthma Infectious Disease History: No Infectious Disease History: Reports: Hx of Known/Suspected MRSA Denies: Traveled Outside the [place] in Last 30 Days - Family History Known Family History: Positive: Other - no fam hx of thyroid issues, Non- Contributory - Social History Alcohol Use: Occasionally Substance Use Type: Reports: None Smoking Status (MU): Former Smoker Review of Systems Constitutional: Negative Eyes: Negative Positive: Other - Painful mass on neck x 1 year, dysphagia Cardiovascular: Negative Respiratory: Negative Gastrointestinal: Negative Genitourinary: Negative Musculoskeletal: Negative Skin: Negative Neurological: Negative Psychological: Normal All Other Systems Reviewed And Are Negative: Yes Physical Exam Triage Information Reviewed: Yes Vital Signs On Initial Exam: Initial Vitals Temp Pulse Resp BP Pulse Ox 97.2 F 90 16 145/104 99 08/14/19 22:40 08/14/19 22:40 08/14/19 22:40 08/14/19 22:40 08/14/19 22:40 Vital Signs Reviewed: Yes Appearance: Positive: Well-Appearing, No Pain Distress, Well-Nourished Skin: Positive: Warm, Skin Color Reflects Adequate Perfusion, Dry Head/Face: Positive: Normal Head/Face Inspection Eyes: Positive: Normal, EOMI, QUENTIN ENT: Positive: Normal ENT inspection, Pharynx normal, Uvula midline Neck: Positive: Supple, No Lymphadenopathy, Other: - tender mass on right side of neck, non-mobile Respiratory/Lung Sounds: Positive: Clear to Auscultation, Breath Sounds Present Cardiovascular: Positive: Normal, RRR, S1, S2 Abdomen Description: Positive: Nontender, Soft Bowel Sounds: Positive: Present Musculoskeletal: Positive: Normal Neurological: Positive: Normal Psychiatric: Positive: Normal, Affect/Mood Appropriate Procedures - Sedation Patient Received Moderate/Deep Sedation with Procedure: No Diagnostics - Vital Signs Vital Signs Temp Pulse Resp BP Pulse Ox 08/14/19 22:40 97.2 F 90 16 145/104 99 - Laboratory Result Diagrams: 08/14/19 23:45 08/14/19 23:45 Lab Statement: Any lab studies that have been ordered have been reviewed, and results considered in the medical decision making process. - CT neck CT Interpretation Completed By: Radiologist Summary of CT Findings: IMPRESSION: No CT findings to correlate with patient's symptomatology. Specifically no right neck masses. Neck Course/Dx - Course Course Of Treatment: 28 year old female presents with 1 year of neck pain that has worsened over the past month. Experiencing dysphagia. Deep, tender, non- mobile mass noted on right side of neck. Patient smoked tobacco for 12 years and has since quit. wbc 11.2. CT neck shows no acute findings. discussed has been having gerd symptoms so will have follow start omeprazole. told to follow up with ENT. told est care with primary. patient understand and agrees with plan. - Diagnoses Differential Dx/HQI/PQRI: Positive: Adenitis, Neoplasm, Other - lymphadenopathy Provider Diagnoses: Anterior neck pain Discharge ED - Sign-Out/Discharge Documenting (check all that apply): Patient Departure - Discharge Plan Condition: Good Disposition: HOME Referrals: Edward Holly MD [Medical Doctor] - [facility] [place] [facility] RE[facility]ERR[facility] [Outside] Additional Instructions: follow up with ENT establish care with primary try omeprazole daily for 2 weeks Return to ED if develop any new or worsening symptoms - Billing Disposition and Condition Condition: GOOD Disposition: Home
[2019-08-14 23:55] LABS: ABS Basophils 0.1 10^3/ul (0-0.2); ABS Eosinophils 0.4 10^3/ul (0-0.6); ABS Monocytes 0.8 10^3/ul (0-0.8); Eosinophil % 3.2 %; Hematocrit 40 % (35-47); Hemoglobin 13.5 g/dL (12.0-16.0); Lymphocyte % 35.4 %; Mean Corpuscular HGB Conc 34 g/dL (31-36); Mean Corpuscular Hemoglobin 29 pg (27-31); Mean Corpuscular Volume 86 fL (80-97); Mean Platelet Volume 7.1 fL (7.4-10.4); Platelet Count 369 10^3/uL (150-450); Red Blood Count 4.62 10^6 /uL (3.70-4.87); Red Cell Distribution Width 13 % (10-15); White Blood Count 11.2 10^3/uL (3.5-10.8)
[2019-08-15 00:12] LABS: Albumin 4.7 g/dL (3.2-5.2); Albumin/Globulin Ratio 1.7 (1-3); BUN/Creatinine Ratio 21.1 (8-20); Calcium 9.4 mg/dL (8.6-10.3); EGFR African American 111.3 (>60); Globulin 2.7 g/dL (2-4); Potassium 3.8 mmol/L (3.5-5.0); Total Bilirubin 0.3 mg/dL (0.2-1.0); Total Protein 7.4 g/dL (6.4-8.9)
[2019-08-15] MEDS ORDERED: Iohexol 300* (CONTRAST) 10 ML SDV IV ONE (00:17)
[2019-08-15 01:49] VITALS: BP 135/87
== END 2019-08-15 01:47 | disposition home or self-care (01) ==
LOC: ED 22:40
DX: M54.2 Cervicalgia (principal); J45.909 Unspecified asthma, uncomplicated; Z87.891 Personal history of nicotine dependence; Z88.0 Allergy status to penicillin
CPT/HCPCS: 36415; 70491; 80053; 85025; 99282; Q9967

== ENCOUNTER 2019-08-25 23:57 | Emergency (ER) | payer OTHER ==
[2019-08-26] MEDS ORDERED: Tenofovir/Emtricitab 200/300 * TAB PO ONE ×3 (03:23→05:10)
[2019-08-26] MEDS ORDERED: Raltegravir* 400 MG TAB PO ONE ×3 (03:25→05:10)
--- NOTE | 2019-08-26 03:45 | ED ---
PMH/Surg Hx/FS Hx/Imm Hx Endocrine/Hematology History: Denies: Hx Anticoagulant Therapy Respiratory History: Reports: Hx Asthma Infectious Disease History: No Infectious Disease History: Reports: Hx of Known/Suspected MRSA Denies: Traveled Outside the [place] in Last 30 Days - Family History Known Family History: Positive: Other - no fam hx of thyroid issues, Non- Contributory - Social History Alcohol Use: Occasionally Substance Use Type: Reports: None Smoking Status (MU): Former Smoker Physical Exam Vital Signs On Initial Exam: Initial Vitals Temp Pulse Resp BP Pulse Ox 97.6 F 97 16 151/98 97 08/26/19 00:00 08/26/19 00:00 08/26/19 00:00 08/26/19 00:00 08/26/19 00:00 Diagnostics - Vital Signs Vital Signs Temp Pulse Resp BP Pulse Ox 08/26/19 02:03 97.0 F 69 18 159/92 98 08/26/19 00:00 97.6 F 97 16 151/98 97 - Laboratory Lab Statement: Any lab studies that have been ordered have been reviewed, and results considered in the medical decision making process. Discharge ED - Discharge Plan Referrals: No Primary Care Phys,NOPCP [Primary Care Provider] - - Attestation Statements Document Initiated by Scribe: Yes
--- NOTE | 2019-08-26 04:04 | ED ---
Complex/Multi-Sys Presentation - HPI Summary HPI Summary: This patient is a 28 year old F presenting to [facility] with a chief complaint of potential STD exposure since prior to arrival. Pt had anal intercourse during which the condom broke. The partner said he was clean but she did not believe him, and wanted to get tested for HIV. - History Of Current Complaint Chief Complaint: EDGeneral Time Seen by Provider: 08/26/19 03:13 Hx Obtained From: Patient Onset/Duration: Sudden Onset Severity Currently: None Location: Negative Aggravating Factor(s): Nothing Alleviating Factor(s): Nothing Associated Signs And Symptoms: Negative: Fever - Allergies/Home Medications Allergies/Adverse Reactions: Allergies Allergy/AdvReac Type Severity Reaction Status Date / Time shellfish derived Allergy Unknown Verified 08/26/19 00:03 Reaction Details amoxicillin AdvReac Unknown Verified 08/26/19 00:03 Reaction Details Penicillins AdvReac Unknown Verified 08/26/19 00:03 Reaction Details PMH/Surg Hx/FS Hx/Imm Hx Endocrine/Hematology History: Denies: Hx Anticoagulant Therapy Respiratory History: Reports: Hx Asthma Sensory History: Denies: Hx Legally Blind Opthamlomology History: Denies: Hx Legally Blind EENT History: Denies: Hx Deafness Infectious Disease History: No Infectious Disease History: Reports: Hx of Known/Suspected MRSA Denies: Traveled Outside the [place] in Last 30 Days - Family History Known Family History: Positive: Other - no fam hx of thyroid issues - Social History Alcohol Use: Occasionally Hx Substance Use: No Substance Use Type: Reports: None Hx Tobacco Use: Yes Smoking Status (MU): Former Smoker - Additional Comments History Additional Comments: Home Medications Medication Instructions Recorded Confirmed Type Estradiol TAB(NF) 6 mg PO DAILY 11/20/18 08/14/19 History Spironolactone TAB* [Aldactone TAB 200 mg PO DAILY 11/20/18 08/14/19 History 25 MG*] Review of Systems Negative: Fever Negative: Rash All Other Systems Reviewed And Are Negative: Yes Physical Exam - Summary Physical Exam Summary: General:Obese female. No acute distress. HEENT: Normocephalic, Atraumatic. Eyes: Conjuctiva normal, PERRL. Oropharynx: Clear, mucous membranes moist, (-) exudates. Neck: Soft, FROM, (-) lymphadenopathy, (-) thyromegaly, (-) JVD. Cardiovascular: Normal sinus rhythm, (-) murmur. Lungs: Clear to auscultation bilaterally (-) wheezes, (-) rales, (-) rhonchi. Abdomen: Soft, non-tender, non-distended, (-) organomegaly, normal bowel sounds. Back: (-) CVA tenderness Extremities: No edema. Skin: Warm, dry, (-) rash. Neuro: Alert and oriented x3, no focal deficits. Psychiatric: Mood normal, affect normal. Triage Information Reviewed: Yes Vital Signs On Initial Exam: Initial Vitals Temp Pulse Resp BP Pulse Ox 97.6 F 97 16 151/98 97 08/26/19 00:00 08/26/19 00:00 08/26/19 00:00 08/26/19 00:00 08/26/19 00:00 Vital Signs Reviewed: Yes Procedures - Sedation Patient Received Moderate/Deep Sedation with Procedure: No Diagnostics - Vital Signs Vital Signs Temp Pulse Resp BP Pulse Ox 08/26/19 02:03 97.0 F 69 18 159/92 98 08/26/19 00:00 97.6 F 97 16 151/98 97 - Laboratory Lab Statement: Any lab studies that have been ordered have been reviewed, and results considered in the medical decision making process. Complex Multi-Symp Course/Dx Course Of Treatment: 28-year-old female presents for post exposure prophylaxis. Patient states she was having receptive anal intercourse with an individual she doesn't know that well. Individual states he has no STDs or HIV. However during intercourse the condom broke and she is concerned she was exposed. Thorough discussion with patient regarding risks and benefits of postexposure prophylaxis. pt started on 28 day course of raltegravir and tenofovir/ emtricitabine. Patient was also given up to date information on these medications. labs for HIV, RPR, and hepatitis ordered. Follow-up with PCP. Follow-up sooner for any worsening symptoms. - Diagnoses Provider Diagnoses: Exposure to potentially hazardous body fluids Discharge ED - Sign-Out/Discharge Documenting (check all that apply): Patient Departure - Discharge - Discharge Plan Condition: Stable Disposition: HOME Patient Education Materials: Postexposure Prophylaxis (ED) Referrals: [facility] [Outside] - 3 Days Additional Instructions: Patient was given up to date information on medication. Please follow up with your primary care physician within three days. Please return to ED for any new or worsening symptoms. - Billing Disposition and Condition Condition: STABLE Disposition: Home - Attestation Statements Document Initiated by Taty: Yes Documenting Scribe: Chary Wetzel Provider For Whom Taty is Documenting (Include Credential): Dr. Leila Silver MD Scribe Attestation: Chary Steiner, scribed for Dr. Leila Silver MD on 08/26/19 at 0556. Scribe Documentation Reviewed: Yes Provider Attestation: The documentation as recorded by the Chary kang accurately reflects the service I personally performed and the decisions made by me, Dr. Leila Silver MD Status of Scribe Document: Viewed
[2019-08-26 05:14] VITALS: BP 142/96
[2019-08-26 05:20] LABS: Hepatitis B Surface Antigen Nonreactive (Nonreactive)
[2019-08-26 05:22] LABS: HIV 4th Generation Nonreactive (Nonreactive)
[2019-08-26 14:32] LABS: Hepatitis C Antibody Negative (Negative)
== END 2019-08-26 05:12 | disposition home or self-care (01) ==
LOC: ED 23:57
DX: Z20.2 Contact with and (suspected) exposure to infections with a predominantly sexual mode of transmission (principal); Z87.891 Personal history of nicotine dependence; Z79.899 Other long term (current) drug therapy; Z88.0 Allergy status to penicillin
CPT/HCPCS: 36415; 86803; 87340; 87389; 99282

== ENCOUNTER 2019-09-10 19:43 | Emergency (ER) | payer OTHER ==
--- NOTE | 2019-09-10 20:12 | ED ---
GI/ HPI - HPI Summary HPI Summary: This patient is a 28 year old biological male presenting to [facility] with a chief complaint of bleeding from her penis since 4 days ago. She states she noted bleeding approximately 4 days ago. Pt states she also noted bleeding post urination. She says she went to [facility] and sent to ED for further evaluation. She states she had her wisdom teeth out 4 days ago and was started on steroids and antibiotics. She states she feels like it is a lesion in the urinary tract. She describes pain when urinating. She reports sweats and chills intermittently. States burning with urination. She states she had UTIs before and this does not feel like this. She reports circumcision 14 years ago. She states she had urinary tract problems before, including the need for a catheter due to urinary blockage one year ago, which she states it was caused by tweezers. Denies instrumenting the urethra this time. She states the catheter made the problem worse and she had it taken out. Patient is currently going through hormone replacement surgery. Pt denies any fever, erythema of eyes, sore throat, CP, SOB, cough, abdominal pain, N/V, myalgia, edema, rash, or dizziness. - History of Current Complaint Chief Complaint: EDUrogenitalProblems Time Seen by Provider: 09/10/19 20:02 Stated Complaint: BLEEDING PER PT Hx Obtained From: Patient Hx Last Menstrual Period: N/A Onset/Duration: Started Days Ago Pain Intensity: 0 - Allergy/Home Medications Allergies/Adverse Reactions: Allergies Allergy/AdvReac Type Severity Reaction Status Date / Time shellfish derived Allergy Unknown Verified 09/10/19 19:50 Reaction Details amoxicillin AdvReac Unknown Verified 09/10/19 19:50 Reaction Details Penicillins AdvReac Unknown Verified 09/10/19 19:50 Reaction Details Home Medications: Home Medications Estradiol TAB(NF) 2 mg PO TID 09/10/19 [History Confirmed 09/10/19] Ibuprofen TAB* [Motrin TAB* 600 MG] 600 mg PO Q6H PRN 09/10/19 [History Confirmed 09/10/19] Spironolactone (NF) [Spironolactone 50 MG (NF)] 100 mg PO BID 09/10/19 [History Confirmed 09/10/19] methylPREDNISolone TAB* [Medrol TAB*] 4 - 8 mg PO .SEE ELIZABETH 09/10/19 [History Confirmed 09/10/19] PMH/Surg Hx/FS Hx/Imm Hx Endocrine/Hematology History: Denies: Hx Anticoagulant Therapy Respiratory History: Reports: Hx Asthma Sensory History: Denies: Hx Legally Blind, Hx Deafness Opthamlomology History: Denies: Hx Legally Blind Infectious Disease History: No Infectious Disease History: Reports: Hx of Known/Suspected MRSA Denies: Traveled Outside the [place] in Last 30 Days - Family History Known Family History: Positive: Other - no fam hx of thyroid issues - Social History Alcohol Use: Occasionally Hx Substance Use: No Substance Use Type: Reports: None Hx Tobacco Use: Yes Smoking Status (MU): Former Smoker Review of Systems Positive: Chills, Skin Diaphoresis. Negative: Fever Negative: Erythema Negative: Sore Throat Negative: Chest Pain Negative: Shortness Of Breath, Cough Negative: Abdominal Pain, Vomiting, Nausea Positive: burning, dysuria, hematuria Negative: Myalgia, Edema Negative: Rash Neurological: Other - Neg: Dizziness All Other Systems Reviewed And Are Negative: No Physical Exam - Summary Physical Exam Summary: Constitutional: Well-developed, Well-nourished, Alert. (-) Distressed Skin: Warm, Dry HENT: Normocephalic; Atraumatic Eyes: Conjunctiva normal Neck: Musculoskeletal ROM normal neck. (-) JVD, (-) Stridor, (-) Tracheal deviation Cardio: Rhythm regular, rate normal, Heart sounds normal; Intact distal pulses; The pedal pulses are 2+ and symmetric. Radial pulses are 2+ and symmetric. (-) Murmur Pulmonary/Chest wall: Effort normal. (-) Respiratory distress, (-) Wheezes, (-) Rales Abd: Soft, (-) tenderness, (-) Distension, (-) Guarding, (-) Rebound Musculoskeletal: (-) Edema Lymph: (-) Cervical adenopathy Neuro: Alert, Oriented x3 Psych: Mood and affect Normal GIGU: [employer] present. No urethral tenderness. Very small amount of irritation at the urethral meatus. Normal appearing testes. Triage Information Reviewed: Yes Vital Signs On Initial Exam: Initial Vitals Temp Pulse Resp BP Pulse Ox 97.4 F 86 16 137/92 98 09/10/19 19:45 09/10/19 19:45 09/10/19 19:45 09/10/19 19:45 09/10/19 19:45 Vital Signs Reviewed: Yes Procedures - Sedation Patient Received Moderate/Deep Sedation with Procedure: No Diagnostics - Vital Signs Vital Signs Temp Pulse Resp BP Pulse Ox 09/10/19 19:45 97.4 F 86 16 137/92 98 - Laboratory Result Diagrams: 09/10/19 20:40 09/10/19 20:40 Lab Statement: Any lab studies that have been ordered have been reviewed, and results considered in the medical decision making process. GIGU Course/Dx - Course Course Of Treatment: This patient is a 28 year old biological male identified as female presenting to [facility] with a chief complaint of bleeding from her penis. WBC at 14.3 H due to steroid use. Labs show Urine Blood 3+ A, Urine RBCs 3+A, and Urine WBCs 1+a. Patient has a prior UTI, will treat empirically pending cultures. Plan for discharge was discussed with the patient and she was agreeable with this plan. - Diagnoses Provider Diagnoses: Hematuria, Urethritis Discharge ED - Sign-Out/Discharge Documenting (check all that apply): Patient Departure - Discharge - Discharge Plan Condition: Stable Disposition: HOME Prescriptions: Sulfamethox/Trimethoprim DS* [Bactrim DS 800/160 TAB*] 1 tab PO BID #10 tab Patient Education Materials: Nonspecific Urethritis in Men (ED), Urinary Tract Infection in Men (ED) Referrals: [facility] [Outside] - 3 Days Edilson Sanchez MD [Medical Doctor] - 3 Days Additional Instructions: Follow up with Urology, follow up with Urology. Return to ED with new or worsening symptoms. - Attestation Statements Document Initiated by Scribe: Yes Documenting Scribe: Luis Moreira Provider For Whom Scribe is Documenting (Include Credential): Avinash Bagley MD Scribe Attestation: Luis Steiner, scribed for Avinash Bagley MD on 09/10/19 at 2151. Status of Scribe Document: Ready
[2019-09-10 20:47] LABS: Hematocrit 41 % (35-47); Hemoglobin 14.1 g/dL (12.0-16.0); Mean Corpuscular HGB Conc 34 g/dL (31-36); Mean Corpuscular Hemoglobin 30 pg (27-31); Mean Corpuscular Volume 88 fL (80-97); Mean Platelet Volume 7.1 fL (7.4-10.4); Platelet Count 387 10^3/uL (150-450); Red Blood Count 4.69 10^6 /uL (3.70-4.87); Red Cell Distribution Width 13 % (10-15); White Blood Count 14.3 10^3/uL (3.5-10.8)
[2019-09-10 20:55] LABS: Albumin 4.1 g/dL (3.2-5.2); CO2 Carbon Dioxide 21 mmol/L (22-32); Calcium 8.9 mg/dL (8.6-10.3); Chloride 105 mmol/L (101-111); Sodium 136 mmol/L (135-145)
[2019-09-10] MEDS ORDERED: Lidocaine 1% MPF ** 5 ML VIAL IM ONE (20:57)
[2019-09-10] MEDS ORDERED: cefTRIAXone VIAL(*) 500 MG VIAL IM ONE (20:57)
[2019-09-10] MEDS ORDERED: Azithromycin TAB* 250 MG PO ONE (20:57)
[2019-09-10 21:01] LABS: ALT 36 U/L (7-52); Albumin/Globulin Ratio 1.3 (1-3); Alkaline Phosphatase 62 U/L (34-104); Blood Urea Nitrogen 15 mg/dL (6-24); EGFR African American 106.4 (>60); Globulin 3.2 g/dL (2-4); Glucose 85 mg/dL (70-100); Total Protein 7.3 g/dL (6.4-8.9)
[2019-09-10 21:26] LABS: Anion Gap 10 mmol/L (2-11)
[2019-09-10 21:42] LABS: Urine Appearance Cloudy; Urine Bilirubin Negative (Negative); Urine Blood 3+ (Negative); Urine Color Yellow; Urine Glucose Negative (Negative); Urine Ketones Negative (Negative); Urine Nitrite Negative (Negative); Urine Protein Negative (Negative); Urine Specific Gravity 1.021 (1.010-1.030); Urine Urobilinogen Negative (Negative)
[2019-09-10 21:45] LABS: Urine Bacteria Absent (Absent); Urine Red Blood Cell 3+(>10/hpf) (Absent); Urine Squamous Epithelial Cell Present (Absent); Urine White Blood Cell 1+(6-10/hpf) (Absent)
[2019-09-10] MEDS ORDERED: Sulfamethox/Trimethoprim DS 800/160* TAB PO ONE (21:47)
[2019-09-10 22:55] VITALS: BP 134/79
[2019-09-10 23:29] LABS: HIV 4th Generation Nonreactive (Nonreactive)
[2019-09-11 13:35] LABS: Chlamydia trachomatis NAA Negative (Negative); Neisseria gonorrhoeae (GC) NAA Negative (Negative)
== END 2019-09-10 23:00 | disposition home or self-care (01) ==
LOC: ED 19:43
DX: R31.9 Hematuria, unspecified (principal); N34.2 Other urethritis; Z88.0 Allergy status to penicillin; J45.909 Unspecified asthma, uncomplicated; Z87.891 Personal history of nicotine dependence; Z79.899 Other long term (current) drug therapy
CPT/HCPCS: 36415; 80053; 81003; 81015; 85027; 87086; 87389; 87491; 87591; 96372; 99283; A9270-GY; J0696

== ENCOUNTER 2019-10-02 02:28 | Emergency (ER) | payer OTHER ==
--- NOTE | 2019-10-02 03:02 | ED ---
HPI Chest Pain - HPI Summary HPI Summary: Patient is a 28 y/o F presenting to the ED for a chief complaint of left anterior chest pain that began on 10/01/19. Patient describes her chest pain as a tightness and throbbing sensation. She also describes face tightness," palpitations, nausea, shortness of breath, and diaphoresis. She also has a feeling of impending doom. She denies her current symptoms as similar to panic attacks she has had in the past. Lying down worsens the pain and sitting upright improves the pain. She believes she may be having an NM. Any significant PMHx or PSHx is denied. FMHx is significant for 3 out of 4 of her grandparents having cardiac disease, NM in her mother, and cancer. She takes Estrodiol 6 mg and spironolactone 200 mg. Patient is [id number] transgender. Patient is a former smoker and admits occasional alcohol use, but drug use is denied. Allergies noted. - History of Current Complaint Chief Complaint: EDChestPainROMI Time Seen by Provider: 10/02/19 02:47 Hx Obtained From: Patient Hx Last Menstrual Period: N/A Onset/Duration: Atraumatic, Still Present Timing: Constant Initial Severity: Mild Current Severity: Mild Pain Intensity: 0 Pain Scale Used: 0-10 Numeric Chest Pain Location: Left Anterior Chest Pain Radiates: No Character: Tightness, Other: - Throbbing Aggravating Factor(s): Other: - Lying down Alleviating Factor(s): Upright Position Associated Signs and Symptoms: Positive: Chest Pain, Shortness of Breath, Diaphoresis, Nausea, Palpitations, Other: - Positive face "tightness" Related History: Obesity - Allergy/Home Medications Allergies/Adverse Reactions: Allergies Allergy/AdvReac Type Severity Reaction Status Date / Time shellfish derived Allergy Unknown Verified 10/02/19 02:31 Reaction Details amoxicillin AdvReac Unknown Verified 10/02/19 02:31 Reaction Details Penicillins AdvReac Unknown Verified 10/02/19 02:31 Reaction Details PMH/Surg Hx/FS Hx/Imm Hx Previously Healthy: Yes Endocrine/Hematology History: Denies: Hx Anticoagulant Therapy, Hx Diabetes Cardiovascular History: Denies: Hx Hypercholesterolemia, Hx Hypertension Respiratory History: Reports: Hx Asthma Sensory History: Denies: Hx Legally Blind, Hx Deafness Opthamlomology History: Denies: Hx Legally Blind EENT History: Denies: Hx Deafness - Surgical History Surgical History: None Surgery Procedure, Year, and Place: None Infectious Disease History: No Infectious Disease History: Reports: Hx of Known/Suspected MRSA Denies: Traveled Outside the [place] in Last 30 Days - Family History Known Family History: Positive: Cardiac Disease, Other - NM, cancer - Social History Occupation: Employed Full-time Lives: With Family Alcohol Use: Occasionally Hx Substance Use: No Substance Use Type: Reports: None Hx Tobacco Use: Yes Smoking Status (MU): Former Smoker Review of Systems - ROS Summary Review of Systems Summary: Estradiol TAB(NF) 2 mg PO TID 09/10/19 [History Confirmed 09/10/19] Ibuprofen TAB* [Motrin TAB* 600 MG] 600 mg PO Q6H PRN 09/10/19 [History Confirmed 09/10/19] Spironolactone (NF) [Spironolactone 50 MG (NF)] 100 mg PO BID 09/10/19 [History Confirmed 09/10/19] Sulfamethox/Trimethoprim DS* [Bactrim DS 800/160 TAB*] 1 tab PO BID #10 tab [Rx] methylPREDNISolone TAB* [Medrol TAB*] 4 - 8 mg PO .SEE ELIZABETH 09/10/19 [History Confirmed 09/10/19] Positive: Skin Diaphoresis Positive: Palpitations, Chest Pain - Left anterior Positive: Shortness Of Breath Positive: Nausea Positive: Other - Positive face "tightness" All Other Systems Reviewed And Are Negative: Yes Physical Exam - Summary Physical Exam Summary: General: Well-developed, obese transgender FEMALE. Mildly anxious appearing. HEENT: Normocephalic, Atraumatic. Eyes: Conjuctiva normal, PERRL. Oropharynx: Clear, mucous membranes moist, (-) exudates. Neck: Soft, FROM, (-) lymphadenopathy, (-) thyromegaly, (-) JVD. Cardiovascular: Normal sinus rhythm, (-) murmur. Lungs: Clear to auscultation bilaterally (-) wheezes, (-) rales, (-) rhonchi. Abdomen: Soft, non-tender, non-distended, (-) organomegaly, normal bowel sounds. Back: (-) CVA tenderness Extremities: No edema. Skin: Warm, dry, (-) rash. Neuro: Alert and oriented x3, no focal deficits. Psychiatric: Mood normal, affect normal. Triage Information Reviewed: Yes Vital Signs On Initial Exam: Initial Vitals Temp Pulse Resp BP Pulse Ox 99.9 F 97 22 152/99 99 10/02/19 02:29 10/02/19 02:29 10/02/19 02:29 10/02/19 02:29 10/02/19 02:29 Vital Signs Reviewed: Yes Procedures - Sedation Patient Received Moderate/Deep Sedation with Procedure: No Diagnostics - Vital Signs Vital Signs Temp Pulse Resp BP Pulse Ox 10/02/19 02:29 99.9 F 97 22 152/99 99 - Laboratory Result Diagrams: 10/02/19 03:26 10/02/19 03:26 Lab Statement: Any lab studies that have been ordered have been reviewed, and results considered in the medical decision making process. - Radiology Chest X-ray Radiology Interpretation Completed By: ED Physician Summary of Radiographic Findings: Chest X-ray IMPRESSION: No infiltrate. No pleural effusion. Reviewed and interpreted by Dr. Silver, pending official radiology report. - EKG 03:29 Cardiac Rate: NL - 90 BPM EKG Rhythm: Sinus Rhythm ST Segment: Normal Ectopy: None Summary of EKG Findings: EKG at 03:29 reveals normal sinus rhythm with rate of 90 BPM, no acute changes, no ischemic changes, no STEMI. This EKG was reviewed and interpreted by Dr. Silver. Re-Evaluation - Re-Evaluation First Eval Re-Evaluation Time: 06:07 Change: Improved Comment: At 06:07, I have discussed results with the patient and the chest pain is resolved. Discussed symptoms that warrant immediate return to ED. Chest Pain Course/Dx - Course Course Of Treatment: 28 year old changes and her female presents with chest pain. States this is not like anxiety attack. Left chest pressure. Shortness of breath. Nausea. No diaphoresis. Has not been ill. No fevers or chills or cough. No significant abnormalities on physical. Workup demonstrates a negative troponin 2. Patient's symptoms have improved. Discharged to home. Follow up with PCP. Follow-up sooner for any worsening symptoms. - Diagnoses Provider Diagnoses: Chest pain Discharge ED - Sign-Out/Discharge Documenting (check all that apply): Patient Departure - Discharge - Discharge Plan Condition: Stable Disposition: HOME Patient Education Materials: Chest Pain (ED) Referrals: [facility] [Outside] Additional Instructions: Please follow up with your primary care physician within three days. Please return to ED for any new or worsening symptoms. - Billing Disposition and Condition Condition: STABLE Disposition: Home - Attestation Statements Document Initiated by Scribe: Yes Documenting Scribe: Joslyn Robles Provider For Whom Scribe is Documenting (Include Credential): Leila Silver MD Scribe Attestation: Joslyn Steiner, scribed for Leila Silver MD on 10/02/19 at 0632. Scribe Documentation Reviewed: Yes Provider Attestation: The documentation as recorded by the Joslyn kang accurately reflects the service I personally performed and the decisions made by , Leila Silver MD Status of Scribe Document: Viewed
[2019-10-02 03:32] LABS: Hematocrit 38 % (35-47); Hemoglobin 13.2 g/dL (12.0-16.0); Mean Corpuscular HGB Conc 35 g/dL (31-36); Mean Corpuscular Hemoglobin 30 pg (27-31); Mean Corpuscular Volume 86 fL (80-97); Mean Platelet Volume 7.2 fL (7.4-10.4); Platelet Count 380 10^3/uL (150-450); Red Blood Count 4.39 10^6 /uL (3.70-4.87); Red Cell Distribution Width 13 % (10-15); White Blood Count 8.8 10^3/uL (3.5-10.8)
[2019-10-02 03:38] LABS: INR 1.07 (0.82-1.09)
[2019-10-02 03:40] LABS: ABS Eosinophils 0.5 10^3/ul (0-0.6); ABS Monocytes 0.6 10^3/ul (0-0.8); ABS Neutrophils 4.6 10^3/ul (1.5-7.7); Eosinophil % 5.8 %; Lymphocyte % 34.1 %; Nucleated Red Blood Cells % 0.3
[2019-10-02 03:50] LABS: ALT 48 U/L (7-52); AST 21 U/L (13-39); Albumin 4.5 g/dL (3.2-5.2); Albumin/Globulin Ratio 1.7 (1-3); Alkaline Phosphatase 70 U/L (34-104); Anion Gap 7 mmol/L (2-11); BUN/Creatinine Ratio 17.9 (8-20); Blood Urea Nitrogen 14 mg/dL (6-24); CO2 Carbon Dioxide 26 mmol/L (22-32); Calcium 8.9 mg/dL (8.6-10.3); Chloride 104 mmol/L (101-111); EGFR Non-African American 89.3 (>60); Globulin 2.6 g/dL (2-4); Glucose 165 mg/dL (70-100); Potassium 3.5 mmol/L (3.5-5.0); Sodium 137 mmol/L (135-145); Total Protein 7.1 g/dL (6.4-8.9)
[2019-10-02 03:52] LABS: Troponin I 0.01 ng/mL (<0.03)
[2019-10-02 03:56] LABS: HCG Pregnancy < 0.60 mIU/mL
[2019-10-02 05:06] LABS: TSH (Thyroid Stimulating Horm) 5.16 mcIU/mL (0.34-5.60)
[2019-10-02 05:37] LABS: Urine Appearance Clear; Urine Bilirubin Negative (Negative); Urine Blood Negative (Negative); Urine Color Straw; Urine Glucose Negative (Negative); Urine Ketones Negative (Negative); Urine Nitrite Negative (Negative); Urine Protein Negative (Negative); Urine Specific Gravity 1.012 (1.010-1.030); Urine Urobilinogen Negative (Negative)
[2019-10-02 07:29] VITALS: BP 102/70
== END 2019-10-02 07:28 | disposition home or self-care (01) ==
LOC: ED 02:28
DX: R07.89 Other chest pain (principal); R00.0 Tachycardia, unspecified; R06.02 Shortness of breath; R11.0 Nausea; R00.2 Palpitations; Z88.0 Allergy status to penicillin; Z91.013 Allergy to seafood; Z82.49 Family history of ischemic heart disease and other diseases of the circulatory system; Z87.891 Personal history of nicotine dependence
CPT/HCPCS: 36415; 71045; 80053; 81003; 83605; 83880; 84443; 84484; 84702; 85025; 85610; 93005; 99283

== ENCOUNTER 2019-11-17 14:36 | Emergency (ER) | payer OTHER ==
[2019-11-17 14:47] VITALS: BP 140/86
--- NOTE | 2019-11-17 15:04 | UC ---
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 - History of Current Complaint Chief Complaint: UCRespiratory Stated Complaint: CONGESTED Time Seen by Provider: 11/17/19 14:47 Hx Obtained From: Patient Hx Last Menstrual Period: N/A ?: No Onset/Duration: Sudden Onset, Lasting Days - 3 Timing: Constant Pain Intensity: 7 Pain Scale Used: 0-10 Numeric Character: Cough: Productive Aggravating Factors: Nothing Alleviating Factors: Nothing Associated Signs And Symptoms: Positive: Fever, Pleuritic Chest Pain, URI - Allergies/Home Medications Allergies/Adverse Reactions: Allergies Allergy/AdvReac Type Severity Reaction Status Date / Time shellfish derived Allergy Unknown Verified 11/17/19 14:44 Reaction Details amoxicillin AdvReac Unknown Verified 11/17/19 14:44 Reaction Details Penicillins AdvReac Unknown Verified 11/17/19 14:44 Reaction Details Home Medications: Home Medications Estradiol TAB(NF) 6 mg PO TID 09/10/19 [History Confirmed 11/17/19] Spironolactone (NF) [Spironolactone 50 MG (NF)] 200 mg PO DAILY 09/10/19 [ History Confirmed 11/17/19] Albuterol HFA INHALER* [Ventolin HFA Inhaler*] 2 puff INH Q4H PRN #1 mdi [Rx] Dextromethorphan LIQ(NF) [Scot-Tussin Diabetes CF (NF)] 1 dose PO ONCE PRN [History Confirmed 11/17/19] PMH/Surg Hx/FS Hx/Imm Hx Previously Healthy: Yes Other History Of: Negative For: Anticoagulant Therapy - Surgical History Surgical History: None Surgery Procedure, Year, and Place: None - Family History Known Family History: Positive: Cardiac Disease, Other - NM, cancer, Non- Contributory - Social History Occupation: Employed Full-time Lives: With Family Alcohol Use: Occasionally Substance Use Type: None Smoking Status (MU): Former Smoker Review of Systems All Other Systems Reviewed And Are Negative: Yes Constitutional: Positive: Fever Skin: Positive: Negative Eyes: Positive: Negative ENT: Positive: Negative Respiratory: Positive: Cough Cardiovascular: Positive: Negative Gastrointestinal: Positive: Negative Genitourinary: Positive: Negative Motor: Positive: Negative Neurovascular: Positive: Negative Musculoskeletal: Positive: Negative Neurological/Mental Status: Positive: Negative Psychological: Positive: Negative Is Patient Immunocompromised?: No Physical Exam Triage Information Reviewed: Yes Appearance: No Pain Distress, Well-Nourished, Ill-Appearing - mild Vital Signs: Initial Vital Signs Temp 96.7 F 11/17/19 14:40 Pulse 102 11/17/19 14:40 Resp 18 11/17/19 14:40 BP 140/86 11/17/19 14:40 Pulse Ox 100 11/17/19 14:40 Vital Signs Reviewed: Yes Eye Exam: Normal Eyes: Positive: Conjunctiva Clear ENT Exam: Normal ENT: Positive: Normal ENT inspection, Hearing grossly normal, Pharynx normal, TMs normal, Uvula midline. Negative: Nasal congestion, Nasal drainage, Tonsillar swelling, Tonsillar exudate, Trismus, Muffled voice, Hoarse voice, Dental tenderness, Sinus tenderness Dental Exam: Normal Neck exam: Normal Neck: Positive: Supple, Nontender, No Lymphadenopathy Respiratory Exam: Normal Respiratory: Positive: Chest non-tender, Lungs clear, Normal breath sounds, No respiratory distress, No accessory muscle use Cardiovascular Exam: Normal Cardiovascular: Positive: RRR, No Murmur, Pulses Normal, Brisk Capillary Refill Musculoskeletal Exam: Normal Musculoskeletal: Positive: Strength Intact, ROM Intact, No Edema Neurological Exam: Normal Neurological: Positive: Alert, Muscle Tone Normal Psychological Exam: Normal Skin Exam: Normal Diagnostics - Laboratory Lab Results: Influenza a/b - Respiratory Course/Dx - Course Course Of Treatment: increase fluids, albuterol, otc medications for symptom relief, may use antibiotics if symptoms fail to improve or worsen - Differential Dx/Diagnosis Provider Diagnosis: Acute viral syndrome, Hypertension Discharge ED - Sign-Out/Discharge Documenting (check all that apply): Patient Departure All imaging exams completed and their final reports reviewed: No Studies - Discharge Plan Condition: Stable Disposition: HOME Prescriptions: Albuterol HFA INHALER* [Ventolin HFA Inhaler*] 2 puff INH Q4H PRN #1 mdi PRN Reason: cough Patient Education Materials: How to Use a Metered-Dose Inhaler (ED), Acute Bronchitis (ED), Hypertension (ED) Referrals: [facility] [Outside] - 1 Week [facility] [Z.BUSINESS, APPLICATION, OTHER] - - Billing Disposition and Condition Condition: STABLE Disposition: Home
[2019-11-17 15:18] LABS: Influenza A Molecular Negative (Negative); Influenza B Molecular Negative (Negative)
== END 2019-11-17 15:30 | disposition home or self-care (01) ==
LOC: UCEAST 14:36
DX: B34.9 Viral infection, unspecified (principal); I10 Essential (primary) hypertension; R05 Cough; R07.81 Pleurodynia; Z91.013 Allergy to seafood; Z88.0 Allergy status to penicillin; Z87.891 Personal history of nicotine dependence
CPT/HCPCS: 99212; G0463

== ENCOUNTER 2019-11-24 09:24 | Emergency (ER) | payer OTHER ==
[2019-11-24 11:21] VITALS: BP 132/76
--- NOTE | 2019-11-24 12:18 | ED ---
Shortness of Breath - HPI Summary HPI Summary: This patient is a 29-year-old female presenting to the ED with complaint of cough 10 days. Patient has been taking [id number] cough medication with little relief. She is now endorsing right-sided chest pain with cough only. She is also endorsing green yellow mucus production. She has been endorsing low grade fevers at home of 99.7. Denies any sweats or chills. Does endorse some fatigue. Cough is moderate to severe at times. No history of PNA. She does have a history of asthma and remote bronchitis years ago. Patient takes no medications other than her albuterol inhaler at this time. She states the albuterol inhaler has been improving her symptoms. At this time, this patient' s concerned for a PNA. - History of Current Complaint Chief Complaint: EDUpperRespComplaint Time Seen by Provider: 11/24/19 09:30 Hx Obtained From: Patient Onset/Duration: Gradual Onset Timing: Constant Current Severity: Mild Dyspnea At: Rest Associated Signs & Symptoms: Cough (Productive) - Risk Factors Pulmonary Embolism: Negative Cardiac: Negative Pseudomonas: Negative Tuberculosis: Negative - Allergy/Home Medications Allergies/Adverse Reactions: Allergies Allergy/AdvReac Type Severity Reaction Status Date / Time shellfish derived Allergy Unknown Verified 11/24/19 09:28 Reaction Details amoxicillin AdvReac Unknown Verified 11/24/19 09:28 Reaction Details Penicillins AdvReac Unknown Verified 11/24/19 09:28 Reaction Details Home Medications: Home Medications Estradiol TAB(NF) 6 mg PO TID 09/10/19 [History Confirmed 11/24/19] Spironolactone (NF) [Spironolactone 50 MG (NF)] 200 mg PO DAILY 09/10/19 [ History Confirmed 11/24/19] Albuterol HFA INHALER* [Ventolin HFA Inhaler*] 2 puff INH Q4H PRN #1 mdi [Rx Confirmed 11/24/19] predniSONE 50 mg TAB [Deltasone 50 mg TAB] 50 mg PO DAILY #5 tab MDD 1 11/24/19 [Rx] PMH/Surg Hx/FS Hx/Imm Hx Previously Healthy: Yes Endocrine/Hematology History: Denies: Hx Anticoagulant Therapy, Hx Diabetes Cardiovascular History: Denies: Hx Hypercholesterolemia, Hx Hypertension Respiratory History: Reports: Hx Asthma Sensory History: Denies: Hx Legally Blind, Hx Deafness Opthamlomology History: Denies: Hx Legally Blind - Surgical History Surgery Procedure, Year, and Place: None - Immunization History Hx Pertussis Vaccination: No Immunizations Up to Date: Yes Infectious Disease History: No Infectious Disease History: Reports: Hx of Known/Suspected MRSA Denies: Traveled Outside the [place] in Last 30 Days - Family History Known Family History: Positive: Cardiac Disease, Other - [place], cancer, Non- Contributory - Social History Occupation: Employed Full-time Lives: With Family Alcohol Use: None Hx Substance Use: No Substance Use Type: Reports: None Hx Tobacco Use: Yes Smoking Status (MU): Former Smoker Review of Systems Negative: Fever, Chills, Fatigue Positive: Chest Pain - L sided only with cough. Negative: Palpitations Positive: Shortness Of Breath, Cough Genitourinary: Negative Positive: no symptoms reported, see HPI Negative: Arthralgia, Myalgia Skin: Negative Neurological/Mental Status: Negative All Other Systems Reviewed And Are Negative: Yes Physical Exam Triage Information Reviewed: Yes Vital Signs On Initial Exam: Initial Vitals Temp Pulse Resp BP Pulse Ox 97.5 F 97 18 133/89 98 11/24/19 09:26 11/24/19 09:26 11/24/19 09:26 11/24/19 09:26 11/24/19 09:26 Vital Signs Reviewed: Yes Appearance: Positive: Well-Appearing, Well-Nourished Skin: Positive: Skin Color Reflects Adequate Perfusion Head/Face: Positive: Normal Head/Face Inspection Eyes: Positive: EOMI, QUENTIN, Conjunctiva Clear Neck: Positive: Supple, No Lymphadenopathy Respiratory/Lung Sounds: Positive: Clear to Auscultation, Breath Sounds Present Cardiovascular: Positive: RRR, Pulses are Symmetrical in both Upper and Lower Extremities Musculoskeletal: Positive: Normal, Strength/ROM Intact Neurological: Positive: Speech Normal Psychiatric: Positive: Normal, Affect/Mood Appropriate AVPU Assessment: Alert Procedures - Sedation Patient Received Moderate/Deep Sedation with Procedure: No Diagnostics - Vital Signs Vital Signs Temp Pulse Resp BP Pulse Ox 11/24/19 09:26 97.5 F 97 18 133/89 98 - Laboratory Lab Statement: Any lab studies that have been ordered have been reviewed, and results considered in the medical decision making process. Course/Dx - Course Course Of Treatment: On physical examination, patient appears well. She does have a cough with congestion. Lungs show rhoncorous sounds to the L lung base, but after albuterol inhaler at bedside and cough, this resolved. Pt has had symptoms x 10 days. Concerned with a PNA as pt has low grade temps. CXR: IMPRESSION: #. No evidence for pneumonia. #. No evidence for acute intrathoracic disease. Discussed findings with patient. As pt is endorses some shortness of breath, I have advised a short course of steroids. Patient is given prednisone once daily 5 days. She will follow up with PCP for any worsening symptoms. - Diagnoses Differential Diagnosis/HQI/PQRI: Positive: Asthma, Bronchitis, Pneumonia Provider Diagnoses: Bronchitis Discharge ED - Sign-Out/Discharge Documenting (check all that apply): Patient Departure - Discharge Plan Condition: Stable Disposition: HOME Prescriptions: predniSONE 50 mg TAB [Deltasone 50 mg TAB] 50 mg PO DAILY #5 tab MDD 1 Patient Education Materials: Acute Bronchitis (ED) Referrals: No Primary Care Phys,NOPCP [Primary Care Provider] - Additional Instructions: Continue to use your albuterol inhaler Prednisone once daily x 5 days Drink plenty of fluids Rest Over the counter cough medication Humidifier in the home will help Tea with lemon and honey - Billing Disposition and Condition Condition: STABLE Disposition: Home
== END 2019-11-24 11:20 | disposition home or self-care (01) ==
LOC: ED 09:24
DX: J40 Bronchitis, not specified as acute or chronic (principal); R07.9 Chest pain, unspecified; R05 Cough; R50.9 Fever, unspecified; Z87.891 Personal history of nicotine dependence; Z88.0 Allergy status to penicillin; Z86.14 Personal history of Methicillin resistant Staphylococcus aureus infection
CPT/HCPCS: 71046; 99282